=== PATIENT | male | born 1995 | race Hispanic/Latino ===

== ENCOUNTER 2018-11-02 16:54 | Inpatient (IN) | payer BC ==
[~2018-11-02] VITALS: Ht 170.2 cm; Wt 108.9 kg
[2018-11-02] VITALS (12 sets, daily range): BP systolic 109–139; BP diastolic 60–86
[2018-11-02] MEDS ORDERED: ONDANSETRON HCL 4 MG/2 ML VIAL ONE ×2 (17:18→22:37)
[2018-11-02] MEDS ORDERED: MORPHINE SULFATE 4 MG/1ML SYG ONE (17:18)
[2018-11-02] MEDS ORDERED: SODIUM CHLORIDE 0.9% 1000ML 1,000 ML IV ONE (17:19)
[2018-11-02 17:51] LABS: APPEARANCE,URINE Clear (CLEAR); BILIRUBIN,URINE Negative (NEGATIVE); COLOR,URINE Yellow (YELLOW); GLUCOSE, URINE (UA) Negative (NEGATIVE); KETONES,URINE Trace mg/dL (NEGATIVE); LEUKOCYTE ESTERASE ,URINE Negative (NEGATIVE); NITRATE,URINE Negative (NEGATIVE); OCCULT BLOOD,URINE Negative (NEGATIVE); PROTEIN,URINE Trace mg/dL (NEGATIVE)
[2018-11-02 18:08] LABS: BASOPHILS % (AUTO) 0.4 % (0.0-5.0); EOSINOPHILS % (AUTO) 0.8 % (0.0-8.0); LYMPHOCYTES % (AUTO) 14.7 % (21.0-51.0); MEAN CORPUSCULAR HEMOGLOBIN 29.3 pg (27.0-33.0); MEAN CORPUSCULAR HGB CONC 33.7 g/dL (32.0-36.0); MONOCYTES % (AUTO) 7.3 % (3.0-13.0); NEUTROPHILS % (AUTO) 76.8 % (40.0-77.0); PLATELET COUNT (AUTO) 273 K/uL (130-400); RED BLOOD CELL COUNT(AUTO) 4.95 MIL/uL (4.50-6.20); RED CELL DISTRIBUTION WIDTH 13.6 % (11.0-15.5); WHITE BLOOD COUNT (AUTO) 13.3 K/uL (4.8-10.8)
[2018-11-02 18:12] LABS: BACTERIA,URINE Rare /HPF (None Seen); WBC,URINE 0-1 /HPF (0-1)
[2018-11-02 18:14] LABS: SQUAMOUS EPITHELIAL CELL,UR Rare /HPF (0-2)
[2018-11-02 18:15] LABS: MUCUS,URINE Few LPF (None Seen)
[2018-11-02 18:18] LABS: CREATININE 0.7 mg/dL (0.5-1.5); INR 0.94 (0.85-1.15); PARTIAL THROMBOPLASTIN TIME 33.6 SEC (26.3-35.5); POTASSIUM 3.4 mmol/L (3.5-5.1); PROTHROMBIN TIME 9.9 SEC (9.6-11.6)
[2018-11-02 18:22] LABS: ALBUMIN 3.7 g/dL (3.5-5.0); BILIRUBIN,TOTAL 0.6 mg/dL (0.2-1.0); TOTAL PROTEIN, SERUM 7.6 g/dL (6.0-8.3)
[2018-11-02] MEDS ORDERED: IOHEXOL-350 75 ML VIAL IV ONE (18:57)
[2018-11-02] MEDS ORDERED: ZOSYN 3.375GM+NS 50ML 50 ML IV ONE (19:51)
[2018-11-02] MEDS ORDERED: ONDANSETRON HCL 4 MG/2 ML VIAL IVP PRN ×2 (21:00→22:45)
[2018-11-02] MEDS ORDERED: LACTATED RINGERS 1000ML 1,000 ML IV SCH (21:00)
[2018-11-02] MEDS ORDERED: MORPHINE SULFATE 4 MG/1ML SYG IVP PRN (21:00)
[2018-11-02] MEDS ORDERED: GLYCOPYRROLATE 1 MG/5 ML SYRINGE ONE (21:03)
[2018-11-02] MEDS ORDERED: ROCURONIUM 10MG/1ML SYR 10 MG/ML ML ONE (21:03)
[2018-11-02] MEDS ORDERED: SUCCINYLCHOLINE 200MG/10ML SYR ONE (21:03)
[2018-11-02] MEDS ORDERED: NEOSTIGMINE 5MG/5ML SYR IV ONE (21:03)
[2018-11-02] MEDS ORDERED: PROPOFOL 10 MG/ML 20ML VIAL IV ONE (21:03)
[2018-11-02] MEDS ORDERED: LIDOCAINE PF 2% 5ML ABBOJECT ONE (21:03)
[2018-11-02] MEDS ORDERED: FENTANYL CITRATE PF 50 MCG/1 ML 2ML VIAL ONE (21:04)
[2018-11-02] MEDS ORDERED: BUPIVACAINE/PF 0.5% 30ML VIAL ONE (21:09)
[2018-11-02] MEDS ORDERED: MEPERIDINE-PF 50 MG/ML SYG ONE (21:39)
[2018-11-02] MEDS ORDERED: KETOROLAC TROMETHAMINE 30MG/ML ONE (22:33)
[2018-11-02] MEDS ORDERED: SODIUM CHLORIDE 0.9% 1000ML 1,000 ML IV SCH (22:41)
[2018-11-02] MEDS ORDERED: MORPHINE SULFATE 4 MG/1ML SYG IV PRN (22:45)
--- NOTE | 2018-11-02 23:43 | NUR ---
ADMISSION. PT TRANSFERRED FROM PACU INTO ROOM 409. PT AWAKE, ALERT AND VERBALLY RESPONSIVE. NO C/O PAIN AT THIS TIME, OXYGEN 2/LPM VIA NC IN PLACE, NO C/O DISTRESS. ABD INCISIONS OBSERVED, MINIMAL DRAINAGE NOTED. PT AND PT MOTHER AT BEDSIDE ORIENTED TO ROOM, CALL BENNETT WITHIN REACH, BED IN LOWEST POSITION. Addendum: 11/03/18 at 0023 by VITALY GUO RN Amended: Links added.
[2018-11-03] VITALS (13 sets, daily range): BP systolic 101–130; BP diastolic 52–73
[2018-11-03] MEDS: ZOSYN 3.375GM+NS 50ML 50 ML IV SCH ×2 (03:59→11:49)
[2018-11-03 04:13] LABS: BASOPHILS % (AUTO) 0.5 % (0.0-5.0); EOSINOPHILS % (AUTO) 0.6 % (0.0-8.0); HEMATOCRIT 39.5 % (42-54); LYMPHOCYTES % (AUTO) 16.8 % (21.0-51.0); MEAN CORPUSCULAR HGB CONC 33.7 g/dL (32.0-36.0); MEAN CORPUSCULAR VOLUME 86.2 fL (79-99); MONOCYTES % (AUTO) 7.3 % (3.0-13.0); NEUTROPHILS % (AUTO) 74.8 % (40.0-77.0); PLATELET COUNT (AUTO) 273 K/uL (130-400); RED BLOOD CELL COUNT(AUTO) 4.58 MIL/uL (4.50-6.20); RED CELL DISTRIBUTION WIDTH 13.5 % (11.0-15.5); WHITE BLOOD COUNT (AUTO) 10.4 K/uL (4.8-10.8)
[2018-11-03 04:35] LABS: CREATININE 0.8 mg/dL (0.5-1.5); POTASSIUM 3.8 mmol/L (3.5-5.1)
[2018-11-03] MEDS ORDERED: ZOSYN 3.375GM+NS 50ML 50 ML IV SCH (05:00)
--- NOTE | 2018-11-03 14:51 | NUR ---
DCP CM met with pt discussed dc plans. Pt is independent prior to admission, lives at home with mother. Denies any equipments/services. Pt feels safe to go back home, still works and drives, mother able to assist with transportation and needs as necessary. DC plan to home once stable. CM to cont to follow up. Addendum: 11/03/18 at 1452 by NICOLLE ALMEIDA LVN CM Amended: Links added.
--- NOTE | 2018-11-03 17:45 | NUR ---
DISCHARGE PATIENT REPORTS TOLERATING SOFT DIET WELL. NO REPORTS OF ABDOMINAL PAIN OR DISCOMFORTS NOTED OR REPORTED. DISCHARGE INSTRUCTIONS PROVIDED TO PATIENT REGARDING RX (TYLENOL #3), SCHEDULED F/U APPT WITH DR. DELPHINE MD DISCHARGE INSTRUCTIONS REGARDING ACTIVITY RESTRICTIONS, AND POST LAP APP[facility] HOME CARE AND INSTRUCTIONS. WORK EXCUSE PROVIDED TO PATIENT. PATIENT VERBALIZED UNDERSTANDING OF DISCHARGE TEACHING. REMOVED 20G IV FROM LEFT AC, CATHETER TIP INTACT. PATIENT TO BE DRIVEN HOME BY HIS MOTHER.
== END 2018-11-03 18:15 | disposition home or self-care (01) | DRG 343 ==
LOC: EDH 16:54 → EDHIP 19:52 → 4BH 23:23
PROVIDERS: ADMIT Surgery; ATTEND Surgery
PROC: 0DTJ4ZZ Resection of Appendix, Percutaneous Endoscopic Approach (ICD-10-PCS; principal; 2018-11-02 21:00)
DX: K35.80 Unspecified acute appendicitis (principal)
CPT/HCPCS: 36415; 74177; 80048; 80053; 81001; 83690; 85025; 85610; 85730; 88304; G0378; J0330; J1885; J2001; J2175; J2270; J2405; J2543; J2704; J2710; J3010; J3490; J7030; Q9967